=== PATIENT | female | born 1955 | race Caucasian/White ===

== ENCOUNTER 2020-02-04 16:51 | Emergency (ER) | payer MEDICARE, BC ==
--- NOTE | 2020-02-04 22:36 | RAD ---
LEFT RING FINGER: 02/04/20 No fracture or opaque foreign body was seen at this time. The bones and joints appear intact. IMPRESSION: No acute bony findings. POS: HOME
== END 2020-02-04 18:25 | disposition home or self-care (01) ==
LOC: BURERS 16:51
DX: M20.012 Mallet finger of left finger(s) (principal)